=== PATIENT | male | born 1990 | race Caucasian/White ===

== ENCOUNTER 2024-06-12 16:05 | Emergency (ER) | payer OTHER ==
[~2024-06-12] VITALS: Ht 172.7 cm; Wt 76.8 kg
[2024-06-12 16:18] VITALS: TEMP 98.5
[2024-06-12] MEDS: PERTUSS(ACELL),DIPH,TET/PF 0.5 ML SYRINGE [ADULT] IM. ONE (17:24)
[2024-06-12] MEDS: TraMADol HCL 50 MG TABLET PO ONE (17:29)
[2024-06-12] MEDS: CeFAZolin 1 GM/DEXTROSE 50 ML IV ONE (17:30)
[2024-06-12] MEDS: BACITRACIN 28 GM OINTMENT TP ONE (18:10)
[2024-06-12 18:29] VITALS: BP 122/70; PULSE 72; RESP 16; O2SAT 98
== END 2024-06-12 19:22 | disposition home or self-care (01) ==
LOC: EMS 16:09
DX: S61.411A Laceration without foreign body of right hand, initial encounter (principal); X58.XXXA Exposure to other specified factors, initial encounter; Y93.89 Activity, other specified; Y92.89 Other specified places as the place of occurrence of the external cause; Y99.8 Other external cause status
CPT/HCPCS: 99284; 96365; 87040; 36415; 73130; 90715; 90471; J0690